=== PATIENT | female | born 1970 | race Caucasian/White ===

== ENCOUNTER 2020-07-19 16:53 | Outpatient (CLI) | payer BC ==
[2020-07-19 20:21] LABS: BHCG - Serum Negative (NEGATIVE); Pregs Control Background? CLEAR/WHITE (CLR/WHITE); Pregs Control Bar Appear? YES (CONTROL BAR)
[2020-07-20 01:49] LABS: SARS-CoV-2 PCR by NAA Not Detected (NotDetected)
== END 2020-07-19 16:54 | disposition home or self-care (01) ==
LOC: CSHLAB 16:53
PROVIDERS: ATTEND Otolaryngology Plastic Surgery within the Head & Neck
DX: Z01.812 Encounter for preprocedural laboratory examination (principal); Z20.822 Contact with and (suspected) exposure to COVID-19; E07.9 Disorder of thyroid, unspecified
CPT/HCPCS: 84703; 85014; 87635; U0003; U0005

== ENCOUNTER 2020-07-23 07:27 | Observation (INO) | payer BC ==
[2020-07-23] MEDS ORDERED: Midazolam HCl 2 mg/2 ml Vial ONE ×2 (09:27→09:42)
[2020-07-23] MEDS ORDERED: Scopolamine 1.5 mg/72 hour Patch ONE (09:28)
[2020-07-23] MEDS ORDERED: Lidocaine 1% MPF 2 ML VIAL ONE (09:28)
[2020-07-23] MEDS ORDERED: Lidocaine 1% w/Epinephrine 1:100K 20 ML VIAL ONE (09:40)
[2020-07-23] MEDS ORDERED: PROPOFOL 20 ML ONE ×2 (09:42→10:27)
[2020-07-23] MEDS ORDERED: Fentanyl 100 MCG/2 ML VIAL ONE ×2 (09:42→10:23)
[2020-07-23] MEDS ORDERED: Lidocaine 1% PF 5 ML VIAL ONE (09:43)
[2020-07-23] MEDS ORDERED: Rocuronium Bromide 10 MG/ML (10ML VIAL) ONE (09:43)
[2020-07-23] MEDS ORDERED: HYDROcodone/Acetaminophen 5/325 mg Tablet PO PRN ×2 (09:43)
[2020-07-23] MEDS ORDERED: Acetaminophen 325 MG TAB PO PRN (09:43)
[2020-07-23] MEDS ORDERED: Ondansetron PF 4 MG/2 ML Vial ONE (09:43)
[2020-07-23] MEDS ORDERED: Dexamethasone 20 MG/5 ML VIAL ONE (09:43)
[2020-07-23] MEDS ORDERED: CEFAZOLIN 1 GM VIAL ONE (09:47)
[2020-07-23] MEDS ORDERED: Glycopyrrolate 0.2 MG/ML 5 ML SYRINGE ONE (09:57)
[2020-07-23] MEDS ORDERED: PHENYLEPHRINE-NS 100 MCG/ML 10 ML SYRINGE ONE (10:04)
[2020-07-23] MEDS ORDERED: Labetalol HCl 100 MG/20 ML VIAL ONE (11:18)
[2020-07-23 15:06] VITALS: BMI 48.1
[2020-07-23] MEDS ORDERED: Ondansetron PF 4 MG/2 ML Vial IVP PRN (15:45)
[2020-07-23] MEDS ORDERED: metFORMIN 500 MG TAB PO SCH (21:00)
[2020-07-24 08:47] VITALS: BP 121/76; TEMP 98.4
[2020-07-24] MEDS ORDERED: FLUoxetine HCl 20 MG CAP PO SCH (09:00)
[2020-07-24] MEDS ORDERED: Rosuvastatin 10 MG TAB PO SCH (09:00)
== END 2020-07-24 10:48 | disposition home or self-care (01) ==
LOC: CSHSDC 07:27 → CSHTELE 10:55
PROVIDERS: ADMIT Otolaryngology Plastic Surgery within the Head & Neck; ATTEND Otolaryngology Plastic Surgery within the Head & Neck
PROC: 0GTG0ZZ Resection of Left Thyroid Gland Lobe, Open Approach (ICD-10-PCS; principal; 2020-07-23)
DX: E04.2 Nontoxic multinodular goiter (principal); G47.30 Sleep apnea, unspecified; J45.909 Unspecified asthma, uncomplicated; F17.210 Nicotine dependence, cigarettes, uncomplicated
CPT/HCPCS: 36416; 88307; 88311; 94760; J0690; J1100; J2250; J2405; J2704; J3010; J3490